=== PATIENT | male | born 1960 | race Caucasian/White ===

== ENCOUNTER 2021-01-11 10:19 | Emergency (ER) | payer OTHER ==
[2021-01-11] MEDS ORDERED: Lidocaine 1% PF 5 ML VIAL ONE (10:34)
[2021-01-11] MEDS ORDERED: Lidocaine 2% w/Epinephrine 1:200K 20 ML VIAL ONE (10:35)
[2021-01-11] MEDS ORDERED: Cephalexin 250 MG CAP ONE (11:01)
[2021-01-11] MEDS ORDERED: Bacitracin 1 PK ONE (11:01)
== END 2021-01-11 11:04 | disposition home or self-care (01) ==
LOC: BURERS 10:19
DX: S01.01XA Laceration without foreign body of scalp, initial encounter (principal); E78.5 Hyperlipidemia, unspecified; W45.8XXA Other foreign body or object entering through skin, initial encounter
CPT/HCPCS: 12002